=== PATIENT | male | born 1935 | race Caucasian/White ===

== ENCOUNTER 2018-05-10 08:54 | Emergency (ER) | payer MEDICARE, OTHER ==
[~2018-05-10] VITALS: Ht 177.8 cm; Wt 76.0 kg
[~2018-05-10 08:54] MED LIST: AMLO5TAB PO; ATEN25TA PO; ATOR20TA66 PO; CHLO25TA2 PO; FLO0.4C PO; GABA-532 PO; GEMF600T4 PO; LANTUS SUBCUT; OMEP20CA10 PO; RAMI5CAP PO
[2018-05-10 08:57] VITALS: BP 158/91
[2018-05-10] MEDS ORDERED: bacitracin 15gm ointment TP ONE (09:20)
== END 2018-05-10 10:28 | disposition home or self-care (01) ==
LOC: ER 08:55
DX: S61.512A Laceration without foreign body of left wrist, initial encounter (principal); I25.10 Atherosclerotic heart disease of native coronary artery without angina pectoris; E78.00 Pure hypercholesterolemia, unspecified; I10 Essential (primary) hypertension; J44.9 Chronic obstructive pulmonary disease, unspecified; E11.9 Type 2 diabetes mellitus without complications; M19.90 Unspecified osteoarthritis, unspecified site; Z98.61 Coronary angioplasty status; Z98.890 Other specified postprocedural states; Z88.1 Allergy status to other antibiotic agents; Z79.4 Long term (current) use of insulin; Z79.899 Other long term (current) drug therapy; W07.XXXA Fall from chair, initial encounter; Y93.89 Activity, other specified; Y92.89 Other specified places as the place of occurrence of the external cause; Y99.8 Other external cause status
CPT/HCPCS: 99282; A6251; A6257; A6258

== ENCOUNTER 2020-07-05 18:36 | Emergency (ER) | payer MEDICARE, OTHER ==
[~2020-07-05] VITALS: Ht 177.8 cm; Wt 77.3 kg
[~2020-07-05 18:36] MED LIST changes: -GEMF600T4 PO; +GEMF600T89 PO; -OMEP20CA10 PO; +OMEP20CA15 PO; -RAMI5CAP PO; +RAMI5CAP65 PO
[2020-07-05 18:47] VITALS: BP 137/62
[2020-07-05] MEDS ORDERED: HYDR-3965 PO (20:56)
[2020-07-05] MEDS ORDERED: HYDROcodone/acetaminophen 10/325mg tab PO ONE (21:00)
== END 2020-07-05 21:28 | disposition home or self-care (01) ==
LOC: ER 18:37
DX: R07.81 Pleurodynia (principal); I25.10 Atherosclerotic heart disease of native coronary artery without angina pectoris; E78.00 Pure hypercholesterolemia, unspecified; I10 Essential (primary) hypertension; J44.9 Chronic obstructive pulmonary disease, unspecified; E11.9 Type 2 diabetes mellitus without complications; M19.90 Unspecified osteoarthritis, unspecified site; Z85.9 Personal history of malignant neoplasm, unspecified; Z98.61 Coronary angioplasty status; Z98.890 Other specified postprocedural states; Z79.2 Long term (current) use of antibiotics; Z79.4 Long term (current) use of insulin; Z79.899 Other long term (current) drug therapy
CPT/HCPCS: 71101; 99284